=== PATIENT | male | born 1975 ===

== ENCOUNTER 2018-08-22 00:35 | Emergency (ER) | payer OTHER ==
[~2018-08-22] VITALS: Ht 180.3 cm; Wt 91.6 kg
[2018-08-22] MEDS ORDERED: ALBU90OI INH (02:38)
== END 2018-08-22 02:54 | disposition home or self-care (01) ==
LOC: ER 00:35
DX: R05 Cough (principal); F31.9 Bipolar disorder, unspecified; F17.210 Nicotine dependence, cigarettes, uncomplicated
CPT/HCPCS: 71045; 93005; 93010; 99284-25